=== PATIENT | female | born 1960 | race Caucasian/White ===

== ENCOUNTER → 2024-09-15 | Outpatient (CLI) | payer BC, SELFPAY ==
--- NOTE | 2024-09-15 13:40 | XR_ITS ---
Examination: Bone densitometry Date and time of exam:September 15, 2024 0142 hrs. Indications: Hysterectomy age 34 vitamin D one year Technique: Lumbar spine and hip total bone mineralization values of an calculated. Peak reference and age match control results have been displayed. Findings: Lumbar spine total bone mineralization is1.150 gm/cm2. This is 0.9 standard deviations above peak reference. This is 2.7 standard deviations above age-matched controls. Hip total bone mineralization is 1.031 gm/cm2 This is 0.7 standard deviations above peak reference. This is 1.9 standard deviations above age-matched controls Impression: There is normal mineralization based on lumbar spine measurements. There is normal mineralization based on hip measurements Lumbar mineralization is increased 5.0% compared with July 02, 2020 Hip mineralization is increased 3.5% compared with July 02, 2020
== END | disposition home or self-care (01) ==
LOC: CDIM 13:23
PROVIDERS: Referring Provider Physician Assistant; Visit Provider Physician Assistant
DX: M81.0 Age-related osteoporosis without current pathological fracture (principal)
CPT/HCPCS: 77080

== ENCOUNTER → 2024-09-18 | Outpatient (CLI) | payer BC, SELFPAY ==
[2024-09-18 16:49] LABS: Amphetamine/Methamp Scrn,U Negative (Negative); Barbiturate Screen,Urine Negative (Negative); Benzodiazepines Screen,Urine Negative (Negative); Benzoylecgonine Screen, Ur Negative (Negative); Fentanyl Screen,Urine Negative (Negative); Opiate Screen,Urine Negative (Negative); THC Screen,Urine Negative (Negative)
== END | disposition home or self-care (01) ==
LOC: SLDO 14:31
PROVIDERS: Referring Provider Physician Assistant; Visit Provider Physician Assistant
DX: Z79.891 Long term (current) use of opiate analgesic (principal)
CPT/HCPCS: 80307

== ENCOUNTER 2025-04-03 12:53 | Inpatient (IN) | payer MEDICARE, OTHER, SELFPAY ==
--- NOTE | 2025-04-03 12:56 | EKG_ITS ---
[facility] (Formerly [facility]) Test Date: 2025-04-03 Pat Name: ANTONIA ALEX Department: Room: - Gender: Female [employer]: : 1960 Requested By: Thomas Thompson Order Number: [id number] Reading MD: Thomas Thompson Measurements Intervals [place] Rate: 113 P: 73 NE: 143 QRS: 66 QRSD: 77 T: 70 QT: 326 QTc: 448 Interpretive Statements SINUS TACHYCARDIA ABNORMAL RHYTHM ECG No previous ECG available for comparison /store/S0/[id number].pdf
[2025-04-03 13:29] VITALS: BP 93/60; PULSE 105; RESP 18; TEMP 36.4; O2SAT 100; BMI 24.2
[2025-04-03 13:36] LABS: Basophils # (Auto) 0.1 Thou/mm3 (0.0-0.2); Basophils % (Auto) 1 % (0-2.5); Eosinophils # (Auto) 0.1 Thou/mm3 (0.0-0.5); Eosinophils % (Auto) 1 % (0-10); Hematocrit 50.8 % (36.0-46.0); Hemoglobin 17.6 g/dL (12.0-16.0); Immature Granulocytes Auto 0.09 Thou/mm3 (0.00-0.00); Lymphocytes # (Auto) 3.1 Thou/mm3 (1.0-4.8); Lymphocytes % (Auto) 16 % (10-50); Mean Corpuscular HGB Conc 34.6 g/dl (31.0-37.0); Mean Corpuscular Hemoglobin 31.6 pg (25.0-35.0); Mean Corpuscular Volume 91 fL (80-100); Monocytes # (Auto) 0.9 Thou/mm3 (0.0-0.8); Monocytes % (Auto) 5 % (0-12); Neutrophils # (Auto) 15.2 Thou/mm3 (1.8-7.7); Neutrophils % (Auto) 78 % (37-80); Nucleated Red Blood Cell # 0.00 Thou/mm3 (0.00-0.00); Nucleated Red Blood Cell % 0 /100 WBC (0); Platelet Count 314 Thou/mm3 (140-440); RDW Standard Deviation 43.3 fL (36.4-46.3); Red Blood Count 5.57 Miln/mm3 (4.00-5.20); White Blood Count 19.5 Thou/mm3 (3.6-11.0)
[2025-04-03 13:41] VITALS: PULSE 113; RESP 18; O2SAT 98
[2025-04-03 14:28] LABS: INR 1.0 (0.9-1.3); Partial Thromboplastin Time 25.4 Seconds (22.0-36.0); Prothrombin Time 10.7 Seconds (9.0-12.2)
--- NOTE | 2025-04-03 14:29 | EDNOTE_ITS ---
<Statement entered by Maritza Ta MD - 04/04/25 07:09> As co-signing physician, I was present and available for consult prn. I concur with the plan and care as documented by the midlevel provider. ED General RME/HPI General Chief complaint: Abdominal Pain Stated complaint: ABDOMINAL PAIN Time Seen by Provider: 04/03/25 12:55 Arrival date/time: 04/03/25 12:53 CC: Abdominal pain nausea without vomiting diarrhea HPI ongoing for the last 2 days. EMS reports tachycardia otherwise stable vital signs patient is awake alert [place]. Patient states she has events similar to this at least once a month since her gallbladder was removed [address] Bravo, patient states however this is the worst episode usually the episodes last 1 to 2 hours with residual pain for 1 day but this has been ongoing for 2 days diarrhea started this morning more than 20 episodes in the last 10 hours. Patient denies fever chest pain or shortness of breath. Related Data Home Medications ?Medication ?Instructions ?Recorded ?Confirmed cetirizine 10 mg capsule (Zyrtec) 10 mg PO HS 08/14/20 08/14/20 conjugated estrogens 0.625 mg 0.625 mg PO QDAY 0 08/14/20 tablet (Premarin) escitalopram oxalate 20 mg tablet 20 mg PO QDAY 08/14/20 (Lexapro) lorazepam 1 mg tablet (Ativan) 1 mg PO HS 08/14/20 tramadol 50 mg tablet 50 mg PO BID PRN back pain 1 10/15/19 08/14/20 Allergies Allergy/AdvReac Type Severity Reaction Status Date / Time adhesive tape Allergy Mild Redness of Verified 08/14/20 14:30 Skin Review of Systems Review of Systems Narrative Review of Systems: GEN: No fever, no chills, no weight loss EYES: No discharge, no visual changes, no pain HEENT: No ear pain, no congestion, no sore throat PULM: No shortness of breath, no cough, no congestion CV: No chest pain, no dyspnea on exertion, no palpitations GI: + nausea, no vomiting, +diarrhea, + pain, no constipation : No frequency, no urgency, no dysuria MUSC/SKEL: No joint pain, no back pain SKIN: No rash PSYCH: No hallucinations, no depression HEME/LYMPH: No easy bleeding or bruising tendencies NEURO: No weakness, no headache ED Exam Narrative Physical exam: [General: In mild discomfort but not in any acute distress Head normocephalic HEENT: Eyes pupils are PERRLA EOMs are intact mouth pink dry membranes uvula is midline swallow symmetrical phonation is normal nose no rhinorrhea although the subsystems of HEENT are within acceptable limits Neck is supple nontender no JVD no edema Chest equal chest rise nontender to palpation Respiratory: Clear to auscultation no wheezes crackles or rubs CV: Rate rhythm is regular no murmurs rubs or clicks Abdomen is distended secondary to body habitus soft diffuse tenderness throughout, no masses. No rebound tenderness or reflexive guarding. Back: No CVA tenderness no spinous process tenderness from cervical spine thoracic and lumbar spine Skin: Intact no petechiae rash induration ulceration or crepitus Extremities: Moving all extremity against resistance cap refill less than 2 seconds neurosensory intact Neuro: Awake alert oriented x3 Glascow coma 15 no focal deficits] Course Course Course Narrative: Patient remains uncomfortable in the bed in spite of med invention as remains with soft blood pressures. With the leukocytosis I am not sure if this autoimmune D marginalization or infectious process. The patient has had 2 episodes of diarrhea during her visit to the emergency room. The CT shows that a probable small ileus with bowel irritation. Patient's case discussed with Dr. Bhagat's resident who agrees to accept the patient for admission, patient is in agreement with this plan. Quality Measures none Orders Category Date Time Status Place in Observation Status Routine Admission 04/03/25 16:43 Active EKG (ED ONLY) *Do not use* NOW Care 04/03/25 12:56 Completed Notify provider NEEDED Care 04/03/25 16:[address] abdomen pelvis wo con Stat Exams 04/03/25 14:36 Completed EKG (ED Only) Stat Exams 04/03/25 12:56 Draft B-Type Natriuretic Peptide Stat Lab 04/03/25 14:03 Completed CBC Stat Lab 04/03/25 13:31 Completed Comprehensive Metabolic Panel Stat Lab 04/03/25 14:03 Completed Drug Screen,Urine Stat Lab 04/03/25 12:56 Ordered Lipase Stat Lab 04/03/25 14:03 Completed Magnesium Stat Lab 04/03/25 14:03 Completed Partial Thromboplastin Time Stat Lab 04/03/25 14:03 Completed Prothrombin Time with INR Stat Lab 04/03/25 14:03 Completed Urinalysis Stat Lab 04/03/25 12:56 Ordered Ondansetron Inj [Zofran Inj] Med 04/03/25 12:56 Discontinued 4 mg IVP X1 ONE Ondansetron Inj [Zofran Inj] Med 04/03/25 14:40 Discontinued 4 mg IVP X1 ONE Prochlorperazine Inj [Compazine Inj] Med 04/03/25 14:29 Discontinued 10 mg IV X1 ONE Sodium Chloride 0.9% 1000 ml [Ns] 1,000 ml Med 04/03/25 14:32 Active IV 125 mls/hr Sodium Chloride 0.9% 1000 ml [Ns] 1,000 ml Med 04/03/25 12:57 Discontinued IV 999 mls/hr Vital Signs Vital signs: Vital Signs Temperature 97.5 F 04/03/25 13:29 Pulse Rate 105 H 04/03/25 13:29 Respiratory Rate 18 04/03/25 13:29 Blood Pressure 93/60 04/03/25 13:29 Pulse Oximetry (%) 100 04/03/25 13:29 Oxygen Delivery Method Room Air 04/03/25 13:29 Discharge Plan Plan Patient Disposition: Other Care w/in Hosp ([facility]) Prescriptions/Referrals Prescriptions/Med Rec: No Action tramadol 50 mg Tablet 50 mg PO BID PRN (Reason: back pain) Premarin 0.625 mg Tablet 0.625 mg PO QDAY lorazepam [Ativan] 1 mg Tablet 1 mg PO HS escitalopram oxalate [Lexapro] 20 mg Tablet 20 mg PO QDAY Zyrtec 10 mg Capsule 10 mg PO HS Referrals: Varsha Moura PA-C [Primary Care Provider] - In 1 week Problem List Clinical Impression: Abdominal pain, Diarrhea, Ileus, Hypotension Patient/Caregiver Discharge Instructions Print Language: Maltese Stand Alone Forms: Judi Award Info., Patient Portal Info Letter PA/ELECTRICAL TESTER Supervising Physician PA/ELECTRICAL TESTER Supervising Physician: Thomas Ibarra ENP [facility] Clinical Information Provided by patient and EMS Medical Records Reviewed [facility] and EMS Meds/Rx Considered, not Ordered None Labs/Rad/Tests considered, not Ordered None Chronic Illness/Social Conditions Add or document further as needed: Cholecystectomy 1 year ago EKG EKG not done Lab Interpretation Labs: interpreted by me Lab(s) interpretation(s): CBC shows leukocytosis of 19,500 H&H of 17.5 and 50.8 no thrombocytopenia Coags within acceptable limits CMP shows no acute electrolyte imbalances glucose 107 no transaminitis or T T. bili elevation, alk phos is 166. Imaging Imaging interpretation: interpreted by me Provider imaging interpretation(s): CT of the abdomen pelvis is interpreted by me read by radiology shows diffuse inflammatory response similar to Crohn's disease with a probable small ileus. Medication Administration(s) Medication Administration History Sodium Chloride (Ns) 1,000 mls @ 125 mls/hr IV .Q8H SANDY Stop: 05/03/25 14:31 Last Admin: 04/03/25 16:33 Dose: 125 mls/hr Documented By: RADHA Discontinued Medications Sodium Chloride (Ns) 1,000 mls @ 999 mls/hr IV .Q1H1M ONE Stop: 04/03/25 13:57 Last Admin: 04/03/25 14:50 Dose: 999 mls/hr Documented By: RADHA Ondansetron HCl (Ondansetron Inj 2 Mg/Ml Inj 2 Ml) 4 mg IVP X1 ONE; Protocol Stop: 04/03/25 12:57 Last Admin: 04/03/25 16:33 Dose: Not Given Documented By: RADHA Non-Admin Reason: Cancelled by Provider Ondansetron HCl (Ondansetron Inj 2 Mg/Ml Inj 2 Ml) 4 mg IVP X1 ONE; Protocol Stop: 04/03/25 14:41 Last Admin: 04/03/25 14:49 Dose: 4 mg Documented By: RADHA Prochlorperazine Edisylate (Prochlorperazine Inj 5 Mg/Ml Vial 2 Ml) 10 mg IV X1 ONE; Protocol Stop: 04/03/25 14:30 Last Admin: 04/03/25 16:33 Dose: Not Given Documented By: RADHA Non-Admin Reason: Cancelled by Provider
[2025-04-03 14:31] LABS: B-Type Natriuretic Peptide < 20 pg/mL (0-100)
[2025-04-03 14:33] LABS: Alanine Aminotransferase 26 U/L (10-49); Albumin, Serum 4.3 gm/dL (3.4-4.8); Albumin/Globulin Ratio 1.9 (1.2-2.2); Alkaline Phosphatase 166 U/L (46-116); Anion Gap 14 (7-16); Aspartate Amino Transferase 28 U/L (0-34); BUN/Creatinine Ratio 14 Ratio (12-20); Bilirubin,Total 0.9 mg/dL (0.3-1.2); Blood Urea Nitrogen 18 mg/dL (9-23); Calcium 9.3 mg/dL (8.3-10.6); Calcium (Corrected) 9.3 mg/dL (8.5-10.1); Carbon Dioxide 22.6 mMol/L (20.0-31.0); Chloride 100 mMol/L (98-107); Creatinine (Component) 1.3 mg/dL (0.6-1.3); Estimated Creatinine Clearance 40.4 mL/min (>60); Globulin 2.3 gm/dL (2.3-3.5); Glucose 107 mg/dL (74-106); Lipase 48 U/L (12-53); Magnesium 1.8 mg/dL (1.6-2.6); Osmolality,Calculated 275 (275-295); Potassium 4.0 mMol/L (3.4-5.1); Sodium 137 mMol/L (136-145); Total Protein 6.6 gm/dL (5.7-8.2); eGFR 46 See Note
--- NOTE | 2025-04-03 14:36 | XR_ITS ---
Examination: CT abdomen and pelvis without contrast. Coronal 3-D reconstructions. Sagittal 2-D reconstructions. Date and time of exam:April 03, 2025, 1539 hours INDICATIONS: Abdominal pain this week CTDI: vol (mGy): 7.95 DLP: (mGycm): 441 Technique: Axial images of the abdomen have been obtained, 3 mm slice thickness Intravenous contrast material has not been administered. Low dose protocols were performed. One or more of the following dose reduction techniques were used; automated exposure control, adjustment of the mA and/or KV according to patient size, use of iterative reconstruction technique. Findings: No focal liver or splenic lesion Absent gallbladder No pancreatic or adrenal mass. No renal or ureteral calculi, no hydronephrosis Multiple fluid distended small bowel loops with wall thickening involving the small bowel loops The cecum is fluid distended No pericecal inflammatory change No diverticulitis Urinary bladder intact Advanced disc narrowing L5-S1 IMPRESSION: Multiple fluid distended small bowel loops with wall thickening, differential would include enteritis such as Crohn's disease Mild colonic ileus Recommend 3 way abdominal series follow-up if early small bowel obstruction is a clinical consideration
[2025-04-03 14:46] VITALS: BP 98/76; PULSE 98; RESP 16; O2SAT 100
[2025-04-03] MEDS: ONDANSETRON INJ 2 MG/ML INJ 2 ML 4 MG IVP (14:49)
[2025-04-03] MEDS: SODIUM CHLORIDE 0.9% 1000 ML 1,000 ML 999 ML IV (14:50)
[2025-04-03] MEDS: SODIUM CHLORIDE 0.9% 1000 ML 1,000 ML 125 ML IV (16:33)
[2025-04-03 16:37] VITALS: BP 103/70; PULSE 91; RESP 14; TEMP 36.6; O2SAT 99
--- NOTE | 2025-04-03 17:54 | ESHP_ITS ---
<Statement entered by Cris Luna MD - 04/04/25 20:59> Patient was seen and examined at bedside. I agree with assessment and plan in this note. - Patient's plan and care discussed with my attending, Dr. Olayinka Luna MD Internal Medicine PGY-3 Documentation for date of: 04/03/25 HPI History of Present Illness History of present illness: is a 64 year old female with PMH HTN and cholecystectomy (2023) who presented to ED today for abdominal pain and diarrhea. Patient was admitted for observation of JAQUELIN. Patient reports she has been having intermittent episodes of abdominal pain and diarrhea about once per month since her cholecystectomy 1 year ago. She states she had presented to the ED due to increased pain with this episode. She reports abdominal pain for the last 2 days. Per ED provider, patient had 20 episodes of watery diarrhea in 10 hours, since this morning. Patient denies melena or mucousy stools. She denies any hospitalizations for similar symptoms in the past. She notes that she avoids spicy foods. She usually tries to avoid fatty foods since her cholecystectomy, but is not always compliant. Patient denies any recent illnesses or sick contacts. Patient denies any renal concerns in the past. Patient also notes an episode of facial flushing, lip swelling, and sensation of throat swelling that self-resolved in the ED after several hours. She has ongoing hoarseness at this time, which she states started after the throat discomfort from this morning. She denies any known triggers or allergies. She denies trying any new foods, skin products, or perfumes prior to the episode. ED course: Vitals: 93/60 on admission, 105 HR, 97.5F, 18 RR, 100% O2 on RA Labs: Cr 1.3 (0.8 in 12/2024). WBC 19.5, Hgb 17.6, ALP 166, AST 28, ALT 26, BNP <20 EKG: sinus tachycardia Imaging: CT Abdomen/Pelvis IMPRESSION: Multiple fluid distended small bowel loops with wall thickening, differential would include enteritis such as Crohn's disease Mild colonic ileus Recommend 3 way abdominal series follow-up if early small bowel obstruction is a clinical consideration Treatments: 1L NS bolus PMH: HTN PSH: cholecystectomy, spine/disc surgery, hysterectomy PFH: Both mother and father have cardiac history and both passed from cirrhosis ; breast cancer in paternal grandmother Medications: unknown blood pressure medication (dose of 10 ), Zyrtec PRN for pruritus Allergies: tape adhesive. NKDA Social Hx: - Tobacco use: Quit 2019. Previously smoking 1 pack/3 weeks. - Alcohol: Socially. - Drugs: Denies. - Job: Not currently working due to back pain/surgery. - Housing: lives with and 2 dogs Review of Systems Review of Systems Narrative Review of Systems: All systems reviewed, and normal except as documented. Exam Vital Signs Temp Pulse Resp BP Pulse Ox O2 Del Method 97.8 F 91 14 103/70 99 Room Air 04/03/25 16:37 04/03/25 16:37 04/03/25 16:37 04/03/25 16:37 04/03/25 16:37 04/03/25 16:37 Narrative Exam GENERAL: A&OX3. No acute distress. Not diaphoretic. HEENT: Normocephalic. No scleral icterus. CV: Tachycardic, but regular rhythm. S1 and S2 heard. No murmurs. PULM: No accessory muscle use. CTAB. No wheezing or crackles. ABDOMEN: Decreased bowel sounds. Soft and non-distended. Tenderness with light palpation at all quadrants, worse in suprapubic region. EXTREMITIES: No lower extremity edema. SKIN: Warm and dry. Excoriation on medial anterior area of LLE. NEURO: Moving all extremities spontaneously. No aphasia. No facial asymmetry. PSYCH: Cooperative with exam. Results: Labs 04/05/25 05:35 04/05/25 05:35 Labs: Short CBC 04/03/25 Range/Units 13:31 WBC 19.5 H (3.6-11.0) Thou/mm3 Hgb 17.6 H (12.0-16.0) g/dL Hct 50.8 H (36.0-46.0) % Plt Count 314 (140-440) Thou/mm3 BMP 04/03/25 14:03 Sodium 137 Potassium 4.0 Chloride 100 Carbon Dioxide 22.6 BUN 18 Creatinine 1.3 Glucose 107 H Calcium 9.3 Liver Function 04/03/25 Range/Units 14:03 Total Bilirubin 0.9 (0.3-1.2) mg/dL AST 28 (0-34) U/L ALT 26 (10-49) U/L Alkaline Phosphatase 166 H (46-116) U/L Albumin 4.3 (3.4-4.8) gm/dL Quality Measures Quality Measures VTE prophylaxis Advance care planning discussed with:: patient Medications Home Medications and Allergies Home Medications ?Medication ?Instructions ?Recorded ?Confirmed ?Type conjugated estrogens 0.625 mg 0.625 mg PO QDAY 0 04/04/25 History tablet (Premarin) escitalopram oxalate 20 mg tablet 20 mg PO QDAY 04/04/25 History (Lexapro) lorazepam 1 mg tablet (Ativan) 1 mg PO HS 08/14/2002/21 History tramadol 50 mg tablet 50 mg PO BID PRN back pain 1 10/15/19 04/04/25 History cyclobenzaprine 10 mg tablet 10 mg PO HS 04/04/2502/21 History lisinopril 10 mg tablet 10 mg PO .QOD 04/04/2504/04 History Allergies Allergy/AdvReac Type Severity Reaction Status Date / Time adhesive tape Allergy Mild Redness of Verified 08/14/20 14:30 Skin Visit Medications Acetaminophen (Acetaminophen 325 Mg Tablet) 650 mg PO Q6H PRN PRN Reason: Fever >100.4 or pain 1-3 Stop: 05/03/25 17:35 Acetaminophen (Acetaminophen 325 Mg Tablet) 650 mg PO Q6H PRN PRN Reason: PAIN SCALE 1-3 (mild Stop: 05/03/25 17:35 Hydrocodone Bitart/Acetaminophen (Hydrocodone/Apap 10/325 Tab) 1 tab PO Q4HR PRN PRN Reason: PAIN SCALE 7-10 (Severe Stop: 04/08/25 17:35 Albuterol/Ipratropium (Albuterol/Ipratropium (Duoneb) Rt Nelly 3 Ml Nebu) 3 ml INH Q6HRRT PRN PRN Reason: shortness of breath Stop: 05/03/25 18:59 Heparin Sodium (Porcine) (Heparin Sod Inj 5000 Unit/Ml Vial) 5,000 unit SC Q12H SANDY Stop: 04/17/25 17:59 Sodium Chloride (Ns) 1,000 mls @ 125 mls/hr IV .Q8H SANDY Stop: 05/03/25 14:31 Last Admin: 04/03/25 16:33 Dose: 125 mls/hr Sodium Chloride (Ns) 1,000 mls @ 75 mls/hr IV .[id number] SANDY Stop: 04/04/25 07:04 Loratadine (Loratadine 10 Mg Tablet) 10 mg PO QDAY SANDY Stop: 05/03/25 17:59 Ondansetron HCl (Ondansetron Inj 2 Mg/Ml Inj 2 Ml) 4 mg IVP Q6H PRN; Protocol PRN Reason: NAUSEA OR VOMITING Stop: 05/03/25 17:52 Tramadol HCl (Tramadol Hcl 50 Mg Tablet) 50 mg PO Q6HR PRN PRN Reason: PAIN SCALE 4-6 (Moderate Stop: 04/08/25 17:35 Discontinued Medications Sodium Chloride (Ns) 1,000 mls @ 999 mls/hr IV .Q1H1M ONE Stop: 04/03/25 13:57 Last Infusion: 04/03/25 15:50 Dose: Infused Ondansetron HCl (Ondansetron Inj 2 Mg/Ml Inj 2 Ml) 4 mg IVP X1 ONE; Protocol Stop: 04/03/25 12:57 Last Admin: 04/03/25 16:33 Dose: Not Given Ondansetron HCl (Ondansetron Inj 2 Mg/Ml Inj 2 Ml) 4 mg IVP X1 ONE; Protocol Stop: 04/03/25 14:41 Last Admin: 04/03/25 14:49 Dose: 4 mg Prochlorperazine Edisylate (Prochlorperazine Inj 5 Mg/Ml Vial 2 Ml) 10 mg IV X1 ONE; Protocol Stop: 04/03/25 14:30 Last Admin: 04/03/25 16:33 Dose: Not Given Assessment & Plan Plan Assessment is a 64 year old female with PMH HTN and cholecystectomy (2023) who presented to ED today for abdominal pain and multiple episodes of diarrhea. Admitted for observation of JAQUELIN. #JAQUELIN most likely prerenal secondary to hypovolemia Suspect to be secondary to fluid depletion from excessive diarrhea. 1L fluid bolus given at ED with improvement in BP from 93/60 to 103/70. Cr of 1.3 at ED, 0.8 in 12/2023. Plan: -Strict I/Os -Start maintenance fluid 125 cc/hr -Trend Cr and eGFR. -Replete Mg and Phos as needed -Avoid nephrotoxic agents. -Renally dose medications. 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 Could be associated with IBD/Crohn's given bowel wall thickening on CT and frequent diarrhea. May also consider GI infection, given leukocytosis on presentation to ED. Less concern for C. difficile infection, given absence of recent illness. Unlikely to be SBO, given multiple diarrheal episodes. At ED: WBC 19.5, ALP 166, Afebrile CT Abdomen/Pelvis showing multiple fluid distended small bowel loops with wall thickening and mild colonic ileus. -Ordered stool culture, f/u -Ordered TSH, CRP, ESR, lipid panel -Continue to monitor for sepsis -Trend CBC -PUD/GERD/[place] diet #Allergic reaction Unknown trigger. Patient had one self-resolving episode of lip swelling, sensation of throat swelling, and facial flushing. Patient has intermittent generalized pruritus at baseline since her hysterectomy. -loratadine 10 mg po QD PRN for pruritus #Hypertension Patient presented with soft BP of 93/60 at ED. Improved with 1L bolus to 103/70. Unknown home BP medication. Plan: -Hold antihypertensive medications at this time. Health maintenance Disposition: Observation GI Prophylaxis: None Diet: PUD/GERD/[place] diet DVT prophylaxis: Heparin CODE STATUS: Full Case discussed with my attending Dr. Bhagat, and my senior resident, Dr. Jeremy Corley, OMS4 Attending Provider Attestation/Addendum I have discussed and was present for the essential components of the history, physical examination, diagnosis, and treatment plan with the resident. I agree with the patient's care as documented by the resident and amended herein by me. Juni Bhagat DO. Although this document has been carefully reviewed, there may still be some phonetic and other typographical errors. These errors are purely grammatical due to imperfections in the software program and should not be construed in any way to compromise the substance of the patient's medical care during this visit.
[2025-04-03 18:13] VITALS: BP 125/92; PULSE 97; RESP 15; TEMP 37.1; O2SAT 96
[2025-04-03 18:32] LABS: Collection Type, Urine Clean Catch
[2025-04-03 18:47] LABS: Amphetamine/Methamp Scrn,U Negative (Negative); Barbiturate Screen,Urine Negative (Negative); Benzodiazepines Screen,Urine Negative (Negative); Benzoylecgonine Screen, Ur Negative (Negative); Fentanyl Screen,Urine Negative (Negative); Opiate Screen,Urine Negative (Negative); THC Screen,Urine Negative (Negative)
[2025-04-03 19:07] LABS: Bacteria,Urine Rare; Bilirubin,Urine Negative (Negative); Blood,Urine Negative (Negative); Clarity,Urine Clear (Clear/Hazy); Color,Urine Yellow (Lt Yel-Yel); Glucose, Urine Negative (Negative); Ketones,Urine Negative (Negative); Leukocyte Esterase,Urine Negative (Negative); Nitrite,Urine Negative (Negative); PH,Urine 6.0 (5.0-7.0); Protein,Urine Negative (Neg - Trace); RBC,Urine 2 /hpf (0-3); Specific Gravity,Urine 1.011 (1.001-1.035); Squamous Epithelial Cell,Urine < 1 /hpf (0-5); Urobilinogen,Urine Negative mg/dL (0.0-1.0); WBC,Urine < 1 /hpf (0-5)
[2025-04-03] MEDS: HEPARIN SOD INJ 5000 UNIT/ML VIAL SC (19:16)
[2025-04-03 19:50] VITALS: BP 119/86; PULSE 92; RESP 18; TEMP 36.1; O2SAT 99
--- NOTE | 2025-04-03 20:00 | PC.NURSE ---
pt arrived to room 380 via wheelchair. pt is alert and oriented, is at bedside. no complaints of any pain at this time.
[2025-04-03] MEDS: SODIUM CHLORIDE 0.9% 1000 ML 1,000 ML 75 ML IV (20:33)
--- NOTE | 2025-04-03 20:41 | PC.NURSE ---
notified Dr Driscoll of two different orders for NS, one at 75 ml/hr and 125 ml/hr. per , proceed with NS at 75 ml/hr.
--- NOTE | 2025-04-03 21:56 | PC.NURSE ---
pt stated will have bring home medications tomorrow 04/04/25 to complete med rec.
[2025-04-04] VITALS (8 sets, daily range): BP systolic 104–125; BP diastolic 68–89; PULSE 74–85; RESP 16–18; TEMP 36.1–36.7; O2SAT 95–99
[2025-04-04 05:59] LABS: Basophils # (Auto) 0.0 Thou/mm3 (0.0-0.2); Basophils % (Auto) 1 % (0-2.5); Eosinophils # (Auto) 0.1 Thou/mm3 (0.0-0.5); Eosinophils % (Auto) 2 % (0-10); Hematocrit 37.2 % (36.0-46.0); Hemoglobin 12.5 g/dL (12.0-16.0); Immature Granulocytes Auto 0.01 Thou/mm3 (0.00-0.00); Lymphocytes # (Auto) 3.0 Thou/mm3 (1.0-4.8); Lymphocytes % (Auto) 46 % (10-50); Mean Corpuscular HGB Conc 33.6 g/dl (31.0-37.0); Mean Corpuscular Hemoglobin 31.6 pg (25.0-35.0); Mean Corpuscular Volume 94 fL (80-100); Monocytes # (Auto) 0.5 Thou/mm3 (0.0-0.8); Monocytes % (Auto) 8 % (0-12); Neutrophils # (Auto) 2.7 Thou/mm3 (1.8-7.7); Neutrophils % (Auto) 43 % (37-80); Nucleated Red Blood Cell # 0.00 Thou/mm3 (0.00-0.00); Nucleated Red Blood Cell % 0 /100 WBC (0); Platelet Count 247 Thou/mm3 (140-440); RDW Standard Deviation 44.9 fL (36.4-46.3); Red Blood Count 3.95 Miln/mm3 (4.00-5.20); White Blood Count 6.4 Thou/mm3 (3.6-11.0)
[2025-04-04 06:34] LABS: Glucose Estimated Average 108 mg/dL (80-131); Hemoglobin A1C 5.4 % Hgb (4.8-6.0)
[2025-04-04 06:38] LABS: Alanine Aminotransferase 19 U/L (10-49); Albumin, Serum 3.2 gm/dL (3.4-4.8); Albumin/Globulin Ratio 1.9 (1.2-2.2); Alkaline Phosphatase 89 U/L (46-116); Anion Gap 6 (7-16); Aspartate Amino Transferase 23 U/L (0-34); BUN/Creatinine Ratio 13 Ratio (12-20); Bilirubin,Total 0.8 mg/dL (0.3-1.2); Blood Urea Nitrogen 12 mg/dL (9-23); C-Reactive Protein 2.6 mg/dL (0.0-0.9); Calcium 8.1 mg/dL (8.3-10.6); Calcium (Corrected) 8.7 mg/dL (8.5-10.1); Carbon Dioxide 25.8 mMol/L (20.0-31.0); Cardiac Risk Estimate 3.9 RATIO (3.7-5.6); Chloride 110 mMol/L (98-107); Cholesterol 147 mg/dL (132-200); Creatinine (Component) 0.9 mg/dL (0.6-1.3); Estimated Creatinine Clearance 63.6 mL/min (>60); Globulin 1.7 gm/dL (2.3-3.5); Glucose 81 mg/dL (74-106); HDL Cholesterol 38 mg/dL (40-60); LDL Cholesterol,Calculated 83 mg/dL (0-130); Magnesium 2.0 mg/dL (1.6-2.6); Osmolality,Calculated 281 (275-295); Phosphorous 2.7 mg/dL (2.4-5.1); Potassium 4.4 mMol/L (3.4-5.1); Sed Rate (ESR) 5 mm/hr (0-30); Sodium 142 mMol/L (136-145); Thyroid Stimulating Hormone 0.77 uIU/mL (0.55-4.78); Total Protein 4.9 gm/dL (5.7-8.2); Triglycerides 130 mg/dL (30-150); eGFR > 60 See Note
--- NOTE | 2025-04-04 09:13 | PD.RESDS ---
Planned Discharge Date 04/04/25 DS: Providers Provider Date of admission: 04/03/25 16:43 Primary care physician: Varsha Moura PA-C Admitting Provider: Mickey Bhagat DO Attending Provider on Admission: Mickey Bhagat DO Attending Provider on DC: Mickey Bhagat DO Discharging Provider: Mickey Bhagat DO DS: Diagnosis Problem List Completed Was Problem List Reviewed/Reconciled?: Yes Hospital Course Hospital Course Hospital course: is a 64 year old female with PMH HTN and cholecystectomy (2023) who presented to ED 04/03/25 for abdominal pain and diarrhea. Patient was admitted for observation of JAQUELIN (Cr 1.3 on 04/03/25 at ED, baseline 0.8 in 12/2023). Cr back to 0.9 this morning. Patient had reported 20 episodes of watery, non-bloody, non-mucousy diarrhea within 10 hours yesterday, with associated abdominal pain. She has had similar but less severe episodes about once per month since cholecystectomy last year. Denies any recent illnesses or sick contacts. Suspect JAQUELIN secondary to volume depletion from excess secretory diarrhea, which has resolved today. Patient also notes an episode of facial flushing, lip swelling, and sensation of throat swelling that self-resolved in the ED after several hours. She has ongoing hoarseness at this time, which she states started after the throat discomfort from this morning. She denies any known triggers or allergies. She denies trying any new foods, skin products, or perfumes prior to the episode. Discharge Instructions: Follow up with PCP within one week of discharge Obtain stool culture out-patient and follow up with PCP for results and management Discuss with PCP regarding workup for episode of swelling to assess for cause. Return to the ED if your symptoms worsen or return #Problem list: #JAQUELIN #Secretory Diarrhea #Hx cholecystectomy ddx: post-cholecystectomy syndrome, gastroenteritis, IBD/Crohn's #Allergic reaction #Hypertension Case discussed with my attending Dr. Bhagat, and senior resident, Dr. Pietro Corley, OMS4 Time Spent with Patient Time attestation: Total time spent providing and/or coordinating discharge services: Time spent: Greater than 30 minutes Exam Vital Signs Temp Pulse Resp BP Pulse Ox O2 Del Method 97.4 F 79 16 108/80 96 Room Air 08/06/25 08:00 04/04/25 08:00 04/04/25 08:00 04/04/25 08:00 04/04/25 08:00 04/04/25 08:00 Narrative Exam GENERAL: A&OX3. No acute distress. Not diaphoretic. HEENT: Normocephalic. No scleral icterus. EOMI CV: Regular rate and rhythm. S1 and S2 heard. No murmurs. PULM: No accessory muscle use. CTAB. No wheezing or crackles. ABDOMEN: Soft and non-distended. Bowel sounds present. Diffuse mild tenderness to palpation of all quadrants. No rebound or guarding. EXTREMITIES: No lower extremity edema. SKIN: Warm and dry. NEURO: Moving all extremities spontaneously. No aphasia. No facial asymmetry. PSYCH: Cooperative with exam. Discharge Plan Plan Patient Disposition: HOME (Self Care) Patient condition on transfer: Stable Prescriptions/Referrals Prescriptions/Med Rec: No Action tramadol 50 mg Tablet 50 mg PO BID PRN (Reason: back pain) Premarin 0.625 mg Tablet 0.625 mg PO QDAY lorazepam [Ativan] 1 mg Tablet 1 mg PO HS escitalopram oxalate [Lexapro] 20 mg Tablet 20 mg PO QDAY Zyrtec 10 mg Capsule 10 mg PO HS Referrals: Varsha Moura PA-C [Primary Care Provider] - Patient/Caregiver Discharge Instructions Discharge Activity: activity as tolerated Print Language: French Stand Alone Forms: Judi Award Info., Patient Portal Info Letter, Work/Release Restrictions Quality Discharge Quality Measures none
[2025-04-04] MEDS: HEPARIN SOD INJ 5000 UNIT/ML VIAL SC ×2 (09:41→20:56)
[2025-04-04] MEDS: SODIUM CHLORIDE 0.9% 1000 ML 1,000 ML 75 ML IV (12:30)
--- NOTE | 2025-04-04 14:03 | ESPR_ITS ---
<Statement entered by Cris Luna MD - 04/04/25 20:26> Patient was seen and examined at bedside. Reported improvement of her symptoms, mentions that she has not had a bowel movement since yesterday night. At this time we believe that her diarrhea has resolved and it was most likely osmotic diarrhea secondary to her previous history of cholecystectomy. Patient reported she still has poor appetite, her meal intake was 0% this morning. For that reason, we will start the patient on IV fluid maintenance and will keep the patient for monitoring for 24 hours. She also reported mild abdominal pain and headache in which she was given 1 dose of [place]. Patient can be discharged if she has a bowel movement. - Patient's plan and care discussed with my attending, Dr. Olayinka Luna MD Internal Medicine PGY-3 Documentation for date of: 04/04/25 Subjective Subjective Interval history: Patient was examined at bedside. No acute events overnight. Patient notes that her abdomen feels sore and raw. Also reports ongoing headache. She states last diarrheal episode was at 2100 last night, but she reports that she has not eaten due to decreased appetite. She also states she has not been drinking much water. Denies hematochezia, nausea, or emesis. Denies dysuria or hematuria. Exam Vital Signs Temp Pulse Resp BP Pulse Ox O2 Del Method 97.9 F 82 17 118/89 H 99 Room Air 04/04/25 12:00 04/04/25 12:00 04/04/25 12:00 04/04/25 12:00 04/04/25 12:00 04/04/25 12:00 Narrative Exam GENERAL: A&OX3. No acute distress. Not diaphoretic. HEENT: Normocephalic. No scleral icterus. EOMI CV: Regular rate and rhythm. S1 and S2 heard. No murmurs. PULM: No accessory muscle use. CTAB. No wheezing or crackles. ABDOMEN: Soft and non-distended. Bowel sounds present. Diffuse mild tenderness to palpation of all quadrants. No rebound or guarding. EXTREMITIES: No lower extremity edema. SKIN: Warm and dry. NEURO: Moving all extremities spontaneously. No aphasia. No facial asymmetry. PSYCH: Cooperative with exam. Objective Labs 04/05/25 05:35 04/05/25 05:35 Labs: Laboratory Results - last 24 hr 04/03/25 04/03/25 04/04/25 14:03 18:14 05:34 WBC 6.4 D RBC 3.95 L Hgb 12.5 D Hct 37.2 D MCV 94 MCH 31.6 MCHC 33.6 RDW Std Deviation 44.9 Plt Count 247 D Neut % (Auto) 43 Lymph % (Auto) 46 Garrett % (Auto) 8 Eos % (Auto) 2 Baso % (Auto) 1 Neut # (Auto) 2.7 Lymph # (Auto) 3.0 Garrett # (Auto) 0.5 Eos # (Auto) 0.1 Baso # (Auto) 0.0 Immature Gran # (Auto) 0.01 H Absolute Nucleated RBC 0.00 Immature Gran % 0 Nucleated RBC % 0 ESR 5 PT 10.7 INR 1.0 APTT 25.4 Sodium 137 142 Potassium 4.0 4.4 Chloride 100 110 H Carbon Dioxide 22.6 25.8 Anion Gap 14 6 L BUN 18 12 Creatinine 1.3 0.9 Estim Creat Clear Calc 40.4 L 63.6 eGFR 46 L > 60 BUN/Creatinine Ratio 14 13 Glucose [address] Glu mg/dL 108 Hemoglobin A1c 5.4 Calculated Osmolality 275 281 Calcium 9.3 8.1 L Corrected Calcium 9.3 8.7 Phosphorus 2.7 Magnesium 1.8 2.0 Total Bilirubin 0.9 0.8 AST 28 23 ALT 26 19 Alkaline Phosphatase 166 H 89 D C-Reactive Prot, Quant 2.6 H B-Natriuretic Peptide < 20 Total Protein 6.6 4.9 L Albumin 4.3 3.2 L D Globulin 2.3 1.7 L Albumin/Globulin Ratio 1.9 1.9 Triglycerides 130 Cholesterol 147 LDL Cholesterol, Calc 83 HDL Cholesterol 38 L Cholesterol/HDL Ratio 3.9 Lipase 48 TSH 0.77 Ur Collection Type Clean Catch Urine Color Yellow Urine Clarity Clear Urine pH 6.0 Ur Specific [place] 1.011 Urine Protein Negative Urine Glucose (UA) Negative Urine Ketones Negative Urine Blood Negative Urine Nitrite Negative Urine Bilirubin Negative Urine Urobilinogen (Auto) Negative Ur Leukocyte Esterase Negative Urine RBC 2 Urine WBC < 1 Ur Squamous Epith Cells < 1 Urine Bacteria Rare Urine Opiates Screen Negative Urine Fentanyl Screen Negative Ur Barbiturates Screen Negative U Amphetamin/Meth Scrn Negative U Benzodiazepines Scrn Negative U Cocaine Metab Screen Negative U Marijuana (THC) Screen Negative Quality Measures Quality Measures none Advance care planning discussed with:: patient Assessment & Plan Assessment Current Active Medications: Generic Name Dose Route Start Last Admin Trade Name Freq PRN Reason Stop Dose Admin Acetaminophen 650 mg 04/03/25 17:36 Acetaminophen 325 Mg Tablet PO 05/03/25 17:35 Q6H PRN Fever >100.4 or pain 1-3 Acetaminophen 650 mg 04/03/25 17:36 Acetaminophen 325 Mg Tablet PO 05/03/25 17:35 Q6H PRN PAIN SCALE 1-3 (mild Hydrocodone Bitart/Acetaminophen 1 tab 04/03/25 17:36 04/04/25 09:40 Hydrocodone/Apap 10/325 Tab PO 04/08/25 17:35 1 tab Q4HR PRN Administration PAIN SCALE 7-10 (Severe Hydrocodone Bitart/Acetaminophen 1 tab 04/04/25 09:06 Hydrocodone/Apap 5/325 Tablet PO 04/09/25 09:05 Q6HR PRN PAIN SCALE 4-6 (Moderate Albuterol/Ipratropium 3 ml 04/03/25 17:30 Albuterol/Ipratropium (Duoneb) Rt Nelly 3 Ml Nebu INH 05/03/25 18:59 Q6HRRT PRN shortness of breath Heparin Sodium (Porcine) 5,000 unit 04/03/25 18:00 04/04/25 09:41 Heparin Sod Inj 5000 Unit/Ml Vial SC 04/17/25 17:59 5,000 unit Q12HR SANDY Administration Sodium Chloride 1,000 mls @ 75 mls/hr 04/04/25 11:02 04/04/25 12:30 Ns IV 05/04/25 11:01 75 mls/hr .[id number] SANDY Administration Loratadine 10 mg 04/03/25 18:00 04/04/25 09:41 Loratadine 10 Mg Tablet PO 05/03/25 17:59 10 mg QDAY SANDY Administration Ondansetron HCl 4 mg 04/03/25 17:53 Ondansetron Inj 2 Mg/Ml Inj 2 Ml IVP 05/03/25 17:52 Q6H PRN NAUSEA OR VOMITING Protocol Plan Assessment is a 64 year old female with PMH HTN and cholecystectomy (2023) who presented to ED today for abdominal pain and multiple episodes of diarrhea. Admitted for observation of JAQUELIN. #JAQUELIN - Resolved Suspect to be secondary to fluid depletion from excessive diarrhea. 1L fluid bolus given at ED with improvement in BP from 93/60 to 103/70. Cr: 1.3 at ED on 04/03, down to 0.9 today. Was 0.8 in 12/2023. Plan: -Strict I/Os -Continue maintenance fluid 125 cc/hr -Avoid nephrotoxic agents for now. #Secretory Diarrhea #Hx cholecystectomy ddx: gastroenteritis, IBD/Crohn's, post-cholecystectomy syndrome Uncertain etiology, but suspect infectious cause, given leukocytosis on presentation to ED. Possible post-cholecystectomy syndrome, but not as likely given increased severity of symptoms with this episode. Could be associated with IBD/Crohn's given bowel wall thickening on CT and frequent diarrhea. Less concern for C. difficile infection, given absence of recent illness. Unlikely to be SBO, given multiple diarrheal episodes. At ED: WBC 19.5, ALP 166, Afebrile Labs: CRP 2.6, ESR 5, TSH 0.77 CT Abdomen/Pelvis showing multiple fluid distended small bowel loops with wall thickening and mild colonic ileus. -Ordered stool culture, f/u -PUD/GERD/[place] diet #Possible angioedema Unknown trigger. Patient had one self-resolving episode of lip swelling, sensation of throat swelling, and facial flushing. Patient has intermittent generalized pruritus at baseline since her hysterectomy. -loratadine 10 mg po QD PRN for pruritus #Hypertension Patient presented with soft BP of 93/60 at ED. Improved with 1L bolus to 103/70. Unknown home BP medication. Plan: -Hold antihypertensive medications at this time. Health maintenance Disposition: Observation GI Prophylaxis: None Diet: PUD/GERD/[place] diet DVT prophylaxis: Heparin CODE STATUS: Full Case discussed with my attending Dr. Bhagat, and my senior resident, Dr. Jeremy oCrley, OMS4 Attending Provider Attestation/Addendum I have discussed and was present for the essential components of the history, physical examination, diagnosis, and treatment plan with the resident. I agree with the patient's care as documented by the resident and amended herein by me. Juni Bhagat DO. Although this document has been carefully reviewed, there may still be some phonetic and other typographical errors. These errors are purely grammatical due to imperfections in the software program and should not be construed in any way to compromise the substance of the patient's medical care during this visit.
[2025-04-05] VITALS (7 sets, daily range): BP systolic 106–137; BP diastolic 67–84; PULSE 76–79; RESP 17–20; TEMP 36.1–36.6; O2SAT 95–98
[2025-04-05] MEDS: SODIUM CHLORIDE 0.9% 1000 ML 1,000 ML 75 ML IV (02:35)
[2025-04-05 06:09] LABS: Basophils # (Auto) 0.0 Thou/mm3 (0.0-0.2); Basophils % (Auto) 1 % (0-2.5); Eosinophils # (Auto) 0.1 Thou/mm3 (0.0-0.5); Eosinophils % (Auto) 1 % (0-10); Hematocrit 36.5 % (36.0-46.0); Hemoglobin 12.3 g/dL (12.0-16.0); Immature Granulocytes Auto 0.02 Thou/mm3 (0.00-0.00); Lymphocytes # (Auto) 2.7 Thou/mm3 (1.0-4.8); Lymphocytes % (Auto) 43 % (10-50); Mean Corpuscular HGB Conc 33.7 g/dl (31.0-37.0); Mean Corpuscular Hemoglobin 31.7 pg (25.0-35.0); Mean Corpuscular Volume 94 fL (80-100); Monocytes # (Auto) 0.4 Thou/mm3 (0.0-0.8); Monocytes % (Auto) 7 % (0-12); Neutrophils # (Auto) 3.1 Thou/mm3 (1.8-7.7); Neutrophils % (Auto) 48 % (37-80); Nucleated Red Blood Cell # 0.00 Thou/mm3 (0.00-0.00); Nucleated Red Blood Cell % 0 /100 WBC (0); Platelet Count 244 Thou/mm3 (140-440); RDW Standard Deviation 45.1 fL (36.4-46.3); Red Blood Count 3.88 Miln/mm3 (4.00-5.20); White Blood Count 6.4 Thou/mm3 (3.6-11.0)
[2025-04-05 06:40] LABS: Alanine Aminotransferase 18 U/L (10-49); Albumin, Serum 3.4 gm/dL (3.4-4.8); Albumin/Globulin Ratio 1.8 (1.2-2.2); Alkaline Phosphatase 80 U/L (46-116); Anion Gap 8 (7-16); Aspartate Amino Transferase 20 U/L (0-34); BUN/Creatinine Ratio 10 Ratio (12-20); Bilirubin,Total 0.5 mg/dL (0.3-1.2); Blood Urea Nitrogen 8 mg/dL (9-23); Calcium 8.5 mg/dL (8.3-10.6); Calcium (Corrected) 9.0 mg/dL (8.5-10.1); Carbon Dioxide 27.0 mMol/L (20.0-31.0); Chloride 109 mMol/L (98-107); Creatinine (Component) 0.8 mg/dL (0.6-1.3); Estimated Creatinine Clearance 71.6 mL/min (>60); Globulin 1.9 gm/dL (2.3-3.5); Glucose 85 mg/dL (74-106); Magnesium 1.4 mg/dL (1.6-2.6); Osmolality,Calculated 284 (275-295); Phosphorous 2.8 mg/dL (2.4-5.1); Potassium 4.3 mMol/L (3.4-5.1); Sodium 144 mMol/L (136-145); Total Protein 5.3 gm/dL (5.7-8.2); eGFR > 60 See Note
[2025-04-05] MEDS: HEPARIN SOD INJ 5000 UNIT/ML VIAL SC (08:14)
[2025-04-05] MEDS: DOCUSATE SOD 250 MG CAPSULE PO (09:48)
[2025-04-05] MEDS: Magnesium Sulfate 4 GM Ivpb 4 GM/50 ML BAG IV (09:48)
[2025-04-05] MEDS: HYDROcodone/APAP 5/325 TABLET 1 TAB PO (12:06)
--- NOTE | 2025-04-05 13:04 | ESDS_ITS ---
<Statement entered by Elinor Westbrook MD - 04/05/25 19:38> I have reviewed the note and agree with the resident's assessment & plan with exceptions as below. I have personally reviewed labs, imaging, home meds/prior records, examined the patient, formulated and discussed management plan with the IM team. Elinor Westbrook, PGY-2 Internal Medicine Planned Discharge Date 04/05/25 DS: Providers Provider Date of admission: 04/04/25 14:11 Primary care physician: Varsha Moura PA-C Admitting Provider: Mickey Bhagat DO Attending Provider on Admission: Mickey Bhagat DO Attending Provider on DC: Mickey Bhagat DO Discharging Provider: Mickey Bhagat DO DS: Diagnosis Problem List Completed Was Problem List Reviewed/Reconciled?: Yes Hospital Course Hospital Course Hospital course: is a 64 year old female with PMH HTN and cholecystectomy (2023) who presented to ED today for abdominal pain and multiple episodes of diarrhea. Admitted for observation of JAQUELIN. ED course: 60 on admission with HR 105. Cr 1.3 (0.8 in 12/2024). WBC 19.5, Hgb 17.6, ALP 166. EKG showing sinus tachycardia. CT abdomen/pelvis showed multiple fluid distended small bowel loops with wall thickening and mild colonic ileus. Patient was given 1L NS bolus and started on maintenance fluids. Hospital course: Cr improved back to baseline at 0.8 after bolus and maintenance fluids. Last bowel movement on 04/03 at 2100. Unable to obtain stool culture as patient has not been having bowel movements, but also no longer indicated at this time due to improvement of diarrhea. Suspect diarrhea was secondary to viral or bacterial gastroenteritis, given symptoms and self-resolving nature. At time of discharge, patient overall improved and hemodynamically stable. She reported some epigastric discomfort radiating to her mid back, but states this has been chronic for her prior to admission. Also reports flatulence and generalized fatigue. She has had improvement in headache, and continues to deny dysuria or hematura. Patient to be discharged on Protonix 40 mg po qAM (ideally 30 minutes prior to breakfast) for gastritis and acid reflux. Encouraged patient to follow up with PCP and outpatient GI for chronic epigastric discomfort. Discharge Instructions: Follow up with PCP within one week Take your meds as prescribed Recommend stool cultures, and other infectious workup for diarrhea if it continues to persist for a total of three weeks Speak with your PCP in regards to seeing a GI Doctor, I am including the GI doctor's information I am prescribing your Protonix, take as prescribed as this is for gastritis and acid reflux Return to ER if your symptoms worsen or return Problem list: #JAQUELIN - Resolved #Secretory Diarrhea - Resolved #Gastroenteritis #Hx cholecystectomy #? Angioedema #Hypertension Case discussed with my attending Dr. Bhagat, and senior resident, Dr. Pietro Corley, OMS4 Time Spent with Patient Time attestation: Total time spent providing and/or coordinating discharge services: Time spent: Greater than 30 minutes Exam Vital Signs Temp Pulse Resp BP Pulse Ox O2 Del Method 97.6 F 79 20 117/67 98 Room Air 04/05/25 12:00 04/05/25 12:00 04/05/25 12:00 04/05/25 12:00 04/05/25 12:00 04/05/25 12:00 Narrative Exam GENERAL: A&OX3. No acute distress. Not diaphoretic. HEENT: Normocephalic. No scleral icterus. EOMI CV: Regular rate and rhythm. S1 and S2 heard. No murmurs. PULM: No accessory muscle use. CTAB. No wheezing or crackles. ABDOMEN: Soft and non-distended. Active bowel sounds. Increased epigastric discomfort with palpation of upper quadrants and epigastric region. No increase in discomfort with palpation of lower quadrants. No rebound or guarding. EXTREMITIES: No lower extremity edema. SKIN: Warm and dry. NEURO: Moving all extremities spontaneously. No aphasia. No facial asymmetry. PSYCH: Cooperative with exam. Discharge Plan Plan Patient Disposition: Home w/HOME HEALTH Patient condition on transfer: Stable Care Plan Goals: Discharge Instructions: Follow up with PCP within one week Take your meds as prescribed Recommend stool cultures, and other infectious workup for diarrhea if it continues to persist for a total of three weeks Speak with your PCP in regards to seeing a GI Doctor, I am including the GI doctor's information I am prescribing your Protonix, take as prescribed as this is for gastritis/ and acid reflux Return to ER if your symptoms worsen or return Prescriptions/Referrals Prescriptions/Med Rec: New pantoprazole [Protonix] 40 mg tablet,delayed release (DR/EC) 40 mg PO QDAY 30 Days Qty: 30 0RF Rx Instructions: Take one tablet by mouth before breakfast Continued tramadol 50 mg Tablet 50 mg PO BID PRN (Reason: back pain) Premarin 0.625 mg Tablet 0.625 mg PO QDAY lorazepam [Ativan] 1 mg Tablet 1 mg PO HS escitalopram oxalate [Lexapro] 20 mg Tablet 20 mg PO QDAY cyclobenzaprine 10 mg tablet 10 mg PO HS Patient Comments: TAKE 1 TABLET BY MOUTH EVERYDAY AT BEDTIME FOR 30 DAYS lisinopril 10 mg tablet 10 mg PO .QOD Patient Comments: TAKE 1 TABLET BY MOUTH EVERY OTHER DAY Referrals: Hayley Martin MD [Physician] - Varsha Moura PA-C [Primary Care Provider] - Patient/Caregiver Discharge Instructions Discharge Activity: activity as tolerated Education Materials: Abdominal Pain, ED Diarrhea, Unknown Cause, ED Vomiting and Diarrhea ... Print Language: Tunisian Stand Alone Forms: Judi Award Info., Patient Portal Info Letter, Work/Release Restrictions Discharge Order Discharge Orders: Discharge (Routine); Ordered 04/05/25 Ordered By: Elinor Westbrook Quality Discharge Quality Measures none MD Attestestation MD Attestation I have discussed and was present for the essential components of the discharge history, physical examination, diagnosis, and discharge treatment plan with the resident. I agree with the patient's discharge care as documented by the resident and amended herein by me. Juni Bhagat DO. The patient understood all discharge instructions, all questions were answered satisfactorily. The patient was instructed to return to the Emergency Department is symptoms worsened or persisted. Patient's symptoms resolved, patient did not have any more episodes of diarrhea in the hospital., Abdominal pain improved, likely viral gastroenteritis, patient instructed to follow-up with her primary care physician within 1 week of discharge for further evaluation. Patient was stable, afebrile, tolerating p.o. intake and ambulatory at time of discharge home. Patient will be discharged with a short course of Protonix for complaints of some epigastric pain which is chronic. Although this document has been carefully reviewed, there may still be some phonetic and other typographical errors. These errors are purely grammatical due to imperfections in the software program and should not be construed in any way to compromise the substance of the patient's medical care during this visit.
--- NOTE | 2025-04-05 16:03 | PC.SS ---
Patient is alert/oriented. Patient was able to verify demographics. Patient resides with . Patient is independent with ADL's. Patient admitted for diarrhea. Patient does not use any DME. Patient drives herself to appointments or spouse will. PCP: ERYN De La Cruz and last appt was a few months ago. Pharmacy: [facility]. D/c plan is to return home. Alt medical decision maker: Spouse, , Terry, [phone]
== END 2025-04-05 14:00 | disposition home health service (06) | DRG 683 ==
LOC: SERX 16:53 → SERHOLD 18:07 → S3SX 04-04 09:18 → SERHOLD 04-04 10:32
PROVIDERS: Registered Nurse General Practice; Admitting Provider Student in an Organized Health Care Education/Training Program; Emergency Provider Emergency Medicine; PCP Physician Assistant; Visit Provider Student in an Organized Health Care Education/Training Program
DX: N17.9 Acute kidney failure, unspecified (principal); K56.7 Ileus, unspecified; I10 Essential (primary) hypertension; Z90.49 Acquired absence of other specified parts of digestive tract; K21.9 Gastro-esophageal reflux disease without esophagitis; R49.0 Dysphonia; R10.9 Unspecified abdominal pain; L29.9 Pruritus, unspecified; E86.9 Volume depletion, unspecified; E86.1 Hypovolemia; Z90.710 Acquired absence of both cervix and uterus; Z87.891 Personal history of nicotine dependence
CPT/HCPCS: 36415; 74176; 80053; 80061; 80307; 81001; 83036; 83690; 83735; 83880; 84100; 84443; 85025; 85610; 85652; 85730; 86140; 87015; 87045; 87046; 87205; 87899; 93005; 94664; 96361; 96374; 99284; G0378; J1644; J2405; J3475; J7030; A9270

== ENCOUNTER → 2025-04-23 | Outpatient (CLI) | payer MEDICARE, OTHER, SELFPAY ==
[2025-04-23 09:28] LABS: Basophils # (Auto) 0.0 Thou/mm3 (0.0-0.2); Basophils % (Auto) 1 % (0-2.5); Eosinophils # (Auto) 0.1 Thou/mm3 (0.0-0.5); Eosinophils % (Auto) 2 % (0-10); Hematocrit 37.6 % (36.0-46.0); Hemoglobin 13.0 g/dL (12.0-16.0); Immature Granulocytes Auto 0.02 Thou/mm3 (0.00-0.00); Lymphocytes # (Auto) 2.7 Thou/mm3 (1.0-4.8); Lymphocytes % (Auto) 40 % (10-50); Mean Corpuscular HGB Conc 34.6 g/dl (31.0-37.0); Mean Corpuscular Hemoglobin 32.0 pg (25.0-35.0); Mean Corpuscular Volume 93 fL (80-100); Monocytes # (Auto) 0.6 Thou/mm3 (0.0-0.8); Monocytes % (Auto) 9 % (0-12); Neutrophils # (Auto) 3.4 Thou/mm3 (1.8-7.7); Neutrophils % (Auto) 50 % (37-80); Nucleated Red Blood Cell # 0.00 Thou/mm3 (0.00-0.00); Nucleated Red Blood Cell % 0 /100 WBC (0); Platelet Count 307 Thou/mm3 (140-440); RDW Standard Deviation 45.4 fL (36.4-46.3); Red Blood Count 4.06 Miln/mm3 (4.00-5.20); White Blood Count 6.8 Thou/mm3 (3.6-11.0)
[2025-04-23 09:38] LABS: Alanine Aminotransferase 22 U/L (10-49); Albumin, Serum 3.8 gm/dL (3.4-4.8); Albumin/Globulin Ratio 1.6 (1.2-2.2); Alkaline Phosphatase 98 U/L (46-116); Anion Gap 10 (7-16); Aspartate Amino Transferase 15 U/L (0-34); BUN/Creatinine Ratio 21 Ratio (12-20); Bilirubin,Total 0.3 mg/dL (0.3-1.2); Blood Urea Nitrogen 15 mg/dL (9-23); Calcium 9.1 mg/dL (8.3-10.6); Calcium (Corrected) 9.3 mg/dL (8.5-10.1); Carbon Dioxide 25.9 mMol/L (20.0-31.0); Chloride 106 mMol/L (98-107); Creatinine (Component) 0.7 mg/dL (0.6-1.3); Globulin 2.4 gm/dL (2.3-3.5); Glucose 84 mg/dL (74-106); Osmolality,Calculated 282 (275-295); Potassium 4.2 mMol/L (3.4-5.1); Sodium 142 mMol/L (136-145); Total Protein 6.2 gm/dL (5.7-8.2); eGFR > 60 See Note
== END | disposition home or self-care (01) ==
LOC: COPL 07:39
PROVIDERS: PCP Family Medicine; Referring Provider Physician Assistant; Visit Provider Physician Assistant
DX: R19.7 Diarrhea, unspecified (principal)
CPT/HCPCS: 36415; 80053; 85025

== ENCOUNTER → 2025-04-26 | Outpatient (CLI) | payer MEDICARE, OTHER, SELFPAY ==
[2025-04-26 17:45] LABS: Campylobacter PCR Negative (Negative); Salmonella Species PCR Negative (Negative); Shiga Toxin PCR Negative (Negative); Shigella Species PCR Negative (Negative)
[2025-05-01 22:07] LABS: Source STOOL
[2025-05-01 22:07] LABS: Source STOOL
[2025-05-02 05:07] LABS: Fecal Globin Result NOT DETECTED (NOT DETECTED)
== END | disposition home or self-care (01) ==
LOC: SLDO 11:50
PROVIDERS: Referring Provider Physician Assistant; Visit Provider Physician Assistant
DX: R19.7 Diarrhea, unspecified (principal)
CPT/HCPCS: 82274; 87015; 87045; 87046; 87177; 87209; 87493; 87899; G0328

== ENCOUNTER → 2025-07-03 | Outpatient (CLI) | payer MEDICARE, OTHER, SELFPAY ==
[2025-07-03 08:35] LABS: Basophils # (Auto) 0.1 Thou/mm3 (0.0-0.2); Basophils % (Auto) 1 % (0-2.5); Eosinophils # (Auto) 0.1 Thou/mm3 (0.0-0.5); Eosinophils % (Auto) 1 % (0-10); Hematocrit 39.0 % (36.0-46.0); Hemoglobin 13.2 g/dL (12.0-16.0); Immature Granulocytes Auto 0.00 Thou/mm3 (0.00-0.00); Lymphocytes # (Auto) 2.3 Thou/mm3 (1.0-4.8); Lymphocytes % (Auto) 37 % (10-50); Mean Corpuscular HGB Conc 33.8 g/dl (31.0-37.0); Mean Corpuscular Hemoglobin 31.6 pg (25.0-35.0); Mean Corpuscular Volume 93 fL (80-100); Monocytes # (Auto) 0.5 Thou/mm3 (0.0-0.8); Monocytes % (Auto) 8 % (0-12); Neutrophils # (Auto) 3.3 Thou/mm3 (1.8-7.7); Neutrophils % (Auto) 53 % (37-80); Nucleated Red Blood Cell # 0.00 Thou/mm3 (0.00-0.00); Nucleated Red Blood Cell % 0 /100 WBC (0); Platelet Count 322 Thou/mm3 (140-440); RDW Standard Deviation 43.7 fL (36.4-46.3); Red Blood Count 4.18 Miln/mm3 (4.00-5.20); White Blood Count 6.2 Thou/mm3 (3.6-11.0)
[2025-07-03 09:05] LABS: Vitamin B12 667 pg/mL (211-911); Vitamin D 25 Hydroxy Total 29.1 ng/mL (7.3-40.2)
[2025-07-03 09:08] LABS: Alanine Aminotransferase 15 U/L (10-49); Albumin, Serum 4.3 gm/dL (3.4-4.8); Albumin/Globulin Ratio 2.4 (1.2-2.2); Alkaline Phosphatase 93 U/L (46-116); Anion Gap 10 (7-16); Aspartate Amino Transferase 17 U/L (0-34); BUN/Creatinine Ratio 19 Ratio (12-20); Bilirubin,Total 0.6 mg/dL (0.3-1.2); Blood Urea Nitrogen 15 mg/dL (9-23); Calcium 9.5 mg/dL (8.3-10.6); Calcium (Corrected) 9.5 mg/dL (8.5-10.1); Carbon Dioxide 27.7 mMol/L (20.0-31.0); Cardiac Risk Estimate 3.2 RATIO (3.7-5.6); Chloride 104 mMol/L (98-107); Cholesterol 183 mg/dL (132-200); Creatinine (Component) 0.8 mg/dL (0.6-1.3); Globulin 1.8 gm/dL (2.3-3.5); Glucose 89 mg/dL (74-106); HDL Cholesterol 58 mg/dL (40-60); LDL Cholesterol,Calculated 87 mg/dL (0-130); Osmolality,Calculated 282 (275-295); Potassium 4.2 mMol/L (3.4-5.1); Sodium 142 mMol/L (136-145); Thyroid Stimulating Hormone 0.94 uIU/mL (0.55-4.78); Total Protein 6.1 gm/dL (5.7-8.2); Triglycerides 189 mg/dL (30-150); eGFR > 60 See Note
[2025-07-03 15:36] LABS: Collection Type, Urine Clean Catch
[2025-07-03 16:09] LABS: Bilirubin,Urine Negative (Negative); Blood,Urine Negative (Negative); Clarity,Urine Clear (Clear/Hazy); Color,Urine Lt-Yellow (Lt Yel-Yel); Culture Indicated,Urine Not Indicated; Glucose, Urine Negative (Negative); Ketones,Urine Negative (Negative); Leukocyte Esterase,Urine Negative (Negative); Nitrite,Urine Negative (Negative); PH,Urine 6.5 (5.0-7.0); Protein,Urine Negative (Neg - Trace); RBC,Urine 1 /hpf (0-3); Specific Gravity,Urine 1.018 (1.001-1.035); Squamous Epithelial Cell,Urine 1 /hpf (0-5); Urobilinogen,Urine Negative mg/dL (0.0-1.0); WBC,Urine < 1 /hpf (0-5)
== END | disposition home or self-care (01) ==
LOC: COPL 07:39
PROVIDERS: PCP Family Medicine; Referring Provider Physician Assistant; Visit Provider Physician Assistant
DX: I10 Essential (primary) hypertension (principal); E78.5 Hyperlipidemia, unspecified; E55.9 Vitamin D deficiency, unspecified; D51.9 Vitamin B12 deficiency anemia, unspecified
CPT/HCPCS: 36415; 80053; 80061; 81001; 82306; 82607; 84443; 85025